=== PATIENT | female | born 1970 | race Caucasian/White ===

== ENCOUNTER 2016-11-14 17:46 | Emergency (ER) | payer MEDICAID ==
[~2016-11-14] VITALS: Ht 157.5 cm; Wt 66.0 kg
[2016-11-14 17:51] VITALS: Ht 157.5 cm; Wt 66.0 kg
[2016-11-14] MEDS ORDERED: IBUPROFEN 600 MG TAB PO ONE (19:30)
[2016-11-14] MEDS ORDERED: SOD CHLORIDE 0.9% 1,000 ML IV STA (19:45)
[2016-11-14] MEDS ORDERED: ACETAMINOPHEN 325 MG TAB PO ONE (20:00)
[2016-11-14 20:06] LABS: BASOPHILS % 0.2 % (0.0-2.0); EOSINOPHILS % 0.2 % (0.0-7.0); HEMATOCRIT 39.4 % (37.0-47.0); HEMOGLOBIN 13.5 g/dl (12.0-16.0); LYMPHOCYTES % 9.1 % (15.0-51.0); MEAN CORPUSCULAR HEMOGLOBIN 31.8 pg (29.0-33.0); MEAN CORPUSCULAR HGB CONC 34.3 g/dl (32.0-37.0); MEAN CORPUSCULAR VOLUME 92.7 fl (82.0-101.0); MEAN PLATELET VOLUME 9.2 fl (7.4-10.4); MONOCYTE # 0.5 10^3/ul (0.3-0.9); MONOCYTES % 4.8 % (0.0-11.0); NEUTROPHIL # 9.1 10^3/ul (1.6-7.5); NEUTROPHILS % 85.3 % (39.0-77.0); PLATELET COUNT 165 10^3/UL (140-415); RED BLOOD COUNT 4.25 10^6/ul (4.20-5.40); RED CELL DISTRIBUTION WIDTH 11.9 % (11.5-14.5); WHITE BLOOD COUNT 10.7 10^3/ul (4.8-10.8)
[2016-11-14 20:29] LABS: ALBUMIN/GLOBULIN RATIO 1.42; BILIRUBIN,INDIRECT 0.4 mg/dl (0-1.1); BILIRUBIN,TOTAL 0.4 mg/dl (0.2-1.3); CALCIUM 9.6 mg/dl (8.4-10.2); CREATININE 0.65 mg/dl (0.44-1.00); POTASSIUM 4.1 mmol/L (3.5-5.1); TOTAL PROTEIN 8.5 g/dl (6.1-8.1)
[2016-11-14 20:35] LABS: ADD UMIC YES; UR ASCORBIC ACID 40 mg/dL (NEGATIVE); UR BACTERIA FEW /HPF (NONE SEEN); UR BILIRUBIN (Dip) NEGATIVE (NEGATIVE); UR BLOOD (Dip) 1+ mg/dL (NEGATIVE); UR BUDDING YEAST MANY /HPF (NONE SEEN); UR CLARITY TURBID (CLEAR); UR COLOR AMBER (YELLOW); UR GLUCOSE (Dip) NEGATIVE (NEGATIVE); UR KETONES (Dip) 2+ mg/dL (NEGATIVE); UR LEUKOCYTE ESTERASE (Dip) 3+ Leu/ul (NEGATIVE); UR NITRITE (Dip) POSITIVE (NEGATIVE); UR RBC 81 /HPF (0-5); UR SPECIFIC GRAVITY (Dip) 1.019 (1.003-1.030); UR SQUAMOUS EPITHELIAL CELL FEW /HPF (FEW); UR TOTAL PROTEIN (Dip) 3+ mg/dl (NEGATIVE); UR UROBILINOGEN (Dip) NEGATIVE (NEGATIVE)
[2016-11-14] MEDS ORDERED: CEPH-443 PO (20:39)
[2016-11-14] MEDS ORDERED: IBUP-1542 PO (20:39)
--- NOTE | 2016-11-14 20:48 | ERD ---
ER Documentation Chief Complaint Date/Time DATE: 11/14/16 TIME: 20:46 Chief Complaint complains of painful urination x 3 days HPI This 46-year-old female presents with dysuria for last 3 days. She has mild suprapubic pain but no upper abdominal pain. She has noted fever triage. She denies vomiting. She has a history of diabetes. ROS All systems reviewed and are negative except as per history of present illness. Medications Home Meds Active Scripts Cephalexin* (Keflex*) 500 Mg Capsule, 500 MG PO QID for 7 Days, CAP Prov:GILLIAN LAWRENCE MD 11/14/16 Ibuprofen* (Motrin*) 600 Mg Tab, 600 MG PO Q6, #15 TAB Prov:GILLIAN LAWRENCE MD 11/14/16 Allergies Allergies: Coded Allergies: No Known Allergy (Unverified , 01/06/15) PMhx/Soc Medical and Surgical Hx: pt denies Surgical Hx History of Surgery: No Anesthesia Reaction: No Hx Neurological Disorder: No Hx Respiratory Disorders: No Hx Cardiac Disorders: No Hx Psychiatric Problems: No Hx Miscellaneous Medical Probl: Yes (DM) Hx Alcohol Use: No Hx Substance Use: No Hx Tobacco Use: No Smoking Status: Never smoker Physical Exam Vitals Vital Signs Date Time Temp Pulse Resp B/P Pulse Ox O2 Delivery O2 Flow Rate FiO2 11/14/16 17:51 100.2 89 20 114/74 100 Physical Exam Const: [], [id number]. Head: Atraumatic Eyes: Normal Conjunctiva ENT: Normal External Ears, Nose and Mouth. Neck: Full range of motion..~ No meningismus. Resp: Clear to auscultation bilaterally Cardio: Regular rate and rhythm, no murmurs Abd: Soft, no suprapubic tenderness. No tenderness at McBurney's point no Oliver sign. Rebound., non distended. Normal bowel sounds Skin: No petechiae or rashes Back: No midline or flank tenderness Ext: No cyanosis, or edema Neur: Awake and alert Psych: Normal Mood and Affect Result Diagram: 11/14/16 1950 11/14/161949 Results 24 hrs Laboratory Tests Test 11/14/16 19:38 11/14/16 19:43 11/14/16 19:50 Urine Color YADIRA Urine Clarity TURBID Urine pH 6.0 Urine Specific [place] 1.019 Urine Ketones 2+mg/dL Urine Nitrite POSITIVEmg/dL Urine Bilirubin NEGATIVEmg/dL Urine Urobilinogen NEGATIVEmg/dL Urine Leukocyte Esterase 3+Nina/ul Urine Microscopic RBC 81/HPF Urine Microscopic WBC > 182/HPF Urine Squamous Epithelial Cells FEW/HPF Urine Bacteria FEW/HPF Urine Yeast (Budding) MANY/HPF Urine Hemoglobin 1+mg/dL Urine Glucose NEGATIVEmg/dL Urine Total Protein 3+mg/dl Bedside Glucose 167mg/dL White Blood Count 10.710^3/ul Red Blood Count 4.2510^6/ul Hemoglobin 13.5g/dl Hematocrit 39.4% Mean Corpuscular Volume 92.7fl Mean Corpuscular Hemoglobin 31.8pg Mean Corpuscular Hemoglobin Concent 34.3g/dl Red Cell Distribution Width 11.9% Platelet Count 95211^3/UL Mean Platelet Volume 9.2fl Neutrophils % 85.3% Lymphocytes % 9.1% Monocytes % 4.8% Eosinophils % 0.2% Basophils % 0.2% Nucleated Red Blood Cells % 0.0/100WBC Neutrophils # 9.110^3/ul Lymphocytes # 1.010^3/ul Monocytes # 0.510^3/ul Eosinophils # 0.010^3/ul Basophils # 0.010^3/ul Nucleated Red Blood Cells # 0.010^3/ul Sodium Level 140mmol/L Potassium Level 4.1mmol/L Chloride Level 103mmol/L Carbon Dioxide Level 25mmol/L Anion Gap 16 Blood Urea Nitrogen 18mg/dl Creatinine 0.65mg/dl Glucose Level 186mg/dl Calcium Level 9.6mg/dl Total Bilirubin 0.4mg/dl Direct Bilirubin 0.00mg/dl Indirect Bilirubin 0.4mg/dl Aspartate Amino Transf (AST/SGOT) 42IU/L Alanine Aminotransferase (ALT/SGPT) 49IU/L Alkaline Phosphatase 123IU/L Total Protein 8.5g/dl Albumin 5.0g/dl Globulin 3.50g/dl Albumin/Globulin Ratio 1.42 Lipase 89U/L Current Medications Medications (Trade) Dose Ordered Sig/Marlo Route PRN Reason Start Time Stop Time Status Last Admin Dose Admin Ibuprofen 600 mg 600 mg ONCE ONCE PO 11/14/16 19:30 11/14/16 19:31 DC 11/14/16 19:43 Sodium Chloride (NS) 1,000 ml @ 1,000 mls/hr Q1H STAT IV 11/14/16 19:45 11/14/16 20:44 DC 11/14/16 20:08 Acetaminophen (Tylenol Tab) 650 mg ONCE ONCE PO 11/14/16 20:00 11/14/16 20:01 DC 11/14/16 20:06 Procedures/MDM Shows findings consistent with UTI. HCG is negative. CBC is normal and CMP normal. Patient is given Rocephin 1 g IV given low-grade fever and history of diabetes. Patient was given 1 L normal saline IV. Patient presents with signs of UTI and low-grade fever. She may have early Cabrera but notes evidence of sepsis or acute abdomen. She will discharged home with prescription of Keflex, ibuprofen, instructions for fluids and return precautions and primary care follow-up. The patient was stable with no new complaints during the ER course. Clinically, there is no current evidence to suggest meningitis, sepsis, acute abdomen, pneumonia, acute coronary syndrome, pulmonary embolism, or any other emergent condition appearing to require further evaluation or hospitalization. The patient should certainly return for any new or worsening symptoms per the aftercare instructions. They should otherwise follow-up with her primary care doctor for reevaluation this week. Departure Diagnosis: Primary Impression: UTI (urinary tract infection) Urinary tract infection type: acute cystitis Hematuria presence: without hematuria Qualified Code: N30.00 - Acute cystitis without hematuria Condition: Stable Patient Instructions: Understanding Urinary Tract Infections (UTIs) Additional Instructions: Urine shows infection. Additional studies show no emergent condition. Drink plenty of fluids at home. Recheck with primary doctor this week return for fevers, vomiting, new or worsening symptoms. GILLIAN LAWRENCE MD Nov 14, 2016 20:48
[2016-11-14] MEDS ORDERED: CEFTRIAXONE 1 GM/50 ML (PMX) 50 ML IVPB ONE (21:00)
[2016-11-14 21:35] VITALS: BP 111/63; PULSE 87; RESP 18; TEMP 98
== END 2016-11-14 21:35 | disposition home or self-care (01) ==
LOC: FTE 17:46
DX: N30.00 Acute cystitis without hematuria (principal); E11.9 Type 2 diabetes mellitus without complications
CPT/HCPCS: 36415; 80053; 81001; 82962; 83690; 85025; 87086; 96361; 96365; J0696; J7030; Z7502; Z7610

== ENCOUNTER 2017-09-21 11:11 | Emergency (ER) | END 2017-09-21 17:20 | disposition home or self-care (01) ==

== ENCOUNTER 2018-05-12 09:06 | Emergency (ER) | payer MEDICAID ==
[~2018-05-12] VITALS: Ht 152.4 cm; Wt 66.5 kg
[~2018-05-12 09:06] MED LIST: CEPH-443 PO; CIPR500T4 PO; IBUP-1542 PO; METR500T PO; ONDA4TAB14 PO
[2018-05-12 09:18] VITALS: Ht 152.4 cm; Wt 66.5 kg
[2018-05-12] MEDS ORDERED: SIMV10TA PO (11:40)
[2018-05-12] MEDS ORDERED: SITA1TAB5 PO (11:41)
[2018-05-12] MEDS ORDERED: LISI10TA2 PO (11:41)
[2018-05-12] MEDS ORDERED: ASPI81TA52 PO (11:41)
--- NOTE | 2018-05-12 12:13 | ERD ---
ER Documentation Chief Complaint Chief Complaint AP HPI The patient is a 47-year-old female, presenting to the ER because of multiple complaints. She recently changed from metformin to Janumet yesterday. She complains of abdominal discomfort about 30 minutes after she took the medication. She felt nauseated but did not vomit. The abdominal pain is transient, mild 2/10, localized at the right lower quadrant. She complains that when she took her blood pressure last night and again this morning, they were low but they got better as time goes on. She denies dizziness, syncope, near syncope, neck pain, chest pain, dyspnea, dysuria, diarrhea, constipation. She does not smoke nor drink, LMP was 2012. She saw her physician today and sent her to the ER for the gallbladder ultrasound Past medical history: Hypertension, dyslipidemia, diabetes mellitus Past surgical history: Appendectomy ROS All systems reviewed and are negative except as per history of present illness. Medications Home Meds Active Scripts Sulfamethoxazole/Trimethoprim* (Bactrim Ds* Tablet) 1 Each Tablet, 1 TAB PO BID, #14 TAB Prov:DAMIAN JUNG MD 05/12/18 Reported Medications Lisinopril* (Lisinopril*) 10 Mg Tablet, 10 MG PO DAILY, #30 TAB 05/12/18 Sitagliptin Phos/Metformin HCl (Janumet 50-1,000 mg Tablet) 1 Each Tablet, 1 EACH PO BID, TAB 05/12/18 Aspirin (Low Dose Aspirin) 81 Mg Tablet.dr, 81 MG PO DAILY, #30 TAB 05/12/18 Simvastatin* (Zocor*) 10 Mg Tablet, 10 MG PO QHS, #30 TAB 05/12/18 Discontinued Scripts Cephalexin* (Keflex*) 500 Mg Capsule, 500 MG PO BID for 7 Days, CAP Prov:KATHY TYSON MD 09/21/17 Ondansetron (Ondansetron Odt) 4 Mg Tab.rapdis, 4 MG PO Q6H PRN for NAUSEA AND/OR VOMITING, #10 TAB Prov:JEANNA URIBE 07/10/17 Metronidazole* (Flagyl*) 500 Mg Tablet, 500 MG PO TID for 7 Days, TAB Prov:JEANNA URIBE 07/10/17 Ciprofloxacin Hcl* (Ciprofloxacin Hcl*) 500 Mg Tablet, 500 MG PO BID for 7 Days, TAB Prov:JEANNA URIBEChelsea 07/10/17 Cephalexin* (Keflex*) 500 Mg Capsule, 500 MG PO QID for 7 Days, CAP Prov:GILLIAN LAWRENCE MD 11/14/16 Ibuprofen* (Motrin*) 600 Mg Tab, 600 MG PO Q6, #15 TAB Prov:GILLIAN LAWRENCE MD 11/14/16 Allergies Allergies: Coded Allergies: No Known Allergy (Unverified , 05/12/18) PMhx/Soc History of Surgery: Yes (APPENECTOMY ) Anesthesia Reaction: No Hx Neurological Disorder: No Hx Respiratory Disorders: No Hx Cardiac Disorders: Yes (Hypertension, hyperlipidemia, ) Hx Psychiatric Problems: No Hx Miscellaneous Medical Probl: Yes (DM) Hx Alcohol Use: No Hx Substance Use: No Hx Tobacco Use: No Physical Exam Vitals Vital Signs Date Temp Pulse Resp B/P (MAP) Pulse Ox O2 O2 Flow FiO2 Time Delivery Rate 05/12/18 98.2 84 19 129/80 100 09:18 (96) Physical Exam Const: No acute distress. Head: Atraumatic. Eyes: Normal Conjunctiva. ENT: Normal External Ears, Nose and Mouth. Neck: Full range of motion. No meningismus. Resp: Clear to auscultation bilaterally. Cardio: Regular rate and rhythm. Abd: Soft, non distended, normal bowel sounds, minimal right sided mid abdominal/RUQ discomfort, no rigidity/rebound/CVA tenderness Skin: No petechiae or rashes. Back: No midline or flank tenderness. Ext: No cyanosis, or edema. Neur: Awake and alert. No focal deficit Psych: Normal Mood and Affect. Result Diagram: 05/12/18 1310 05/12/18 1310 Results 24 hrs Laboratory Tests Test 05/12/18 12:27 05/12/18 13:10 05/12/18 13:14 05/12/18 13:16 Bedside Glucose 141 mg/dL White Blood Count 9.4 10^3/ul Red Blood Count 4.71 10^6/ul Hemoglobin 14.6 g/dl Hematocrit 43.3 % Mean Corpuscular 91.9 fl Volume Mean Corpuscular 31.0 pg Hemoglobin Mean Corpuscular 33.7 g/dl Hemoglobin Concent Red Cell 12.0 % Distribution Width Platelet Count 186 10^3/UL Mean Platelet 8.7 fl Volume Immature 0.500 % Granulocytes % Neutrophils % 70.1 % Lymphocytes % 22.7 % Monocytes % 5.2 % Eosinophils % 1.1 % Basophils % 0.4 % Nucleated Red Blood 0.0 /100WBC Cells % Immature 0.050 10^3/ul Granulocytes # Neutrophils # 6.6 10^3/ul Lymphocytes # 2.1 10^3/ul Monocytes # 0.5 10^3/ul Eosinophils # 0.1 10^3/ul Basophils # 0.0 10^3/ul Nucleated Red Blood 0.0 10^3/ul Cells # Sodium Level 141 mmol/L Potassium Level 4.6 mmol/L Chloride Level 99 mmol/L Carbon Dioxide 29 mmol/L Level Anion Gap 13 Blood Urea Nitrogen 16 mg/dl Creatinine 0.59 mg/dl Est Glomerular > 60 mL/min Filtrat Rate mL/min Glucose Level 165 mg/dl Calcium Level 10.1 mg/dl Total Bilirubin 0.4 mg/dl Direct Bilirubin 0.00 mg/dl Indirect Bilirubin 0.4 mg/dl Aspartate Amino 23 IU/L Transf (AST/SGOT) Alanine 29 IU/L Aminotransferase (A LT/SGPT) Alkaline 98 IU/L Phosphatase Total Protein 7.9 g/dl Albumin 4.8 g/dl Globulin 3.10 g/dl Albumin/Globulin 1.54 Ratio Lipase 194 U/L Bedside Urine pH 7.0 (LAB) Bedside Urine Negative Protein (LAB) Bedside Urine Negative Glucose (UA) Bedside Urine Negative Ketones (LAB) Bedside Urine Blood Negative Bedside Urine Negative Nitrite (LAB) Bedside Urine 2+ Leukocyte Esterase (L POC Beta HCG, NEGATIVE Qualitative Current Medications Medications Dose Sig/Marlo Start Time Status Last (Trade) Ordered Route PRN Stop Time Admin Dose Reason Admin Ketorolac 30 mg ONCE STAT 05/12/18 DC 05/12/18 Tromethamine IV 12:21 12:55 (Toradol) 05/12/18 12:22 Procedures/MDM [place] [id number] Radiology Main Line: [phone] DIAGNOSTIC IMAGING REPORT Patient: VINCENZO ARCHULETA : 1970 Age: 47 Sex: F MR #: [id number] DOS: 05/12/18 1221 Ordering MD: DAMIAN JUNG MD Location: E/R Room/Bed: PROCEDURE: US Abdomen (right upper quadrant). CLINICAL INDICATION: Abdominal pain. TECHNIQUE: Multiple real-time longitudinal and transverse images of the right upper quadrant of the abdomen were acquired utilizing a curved array transducer. Images were reviewed on a high-resolution PACS workstation. COMPARISON: CT abdomen pelvis from 07/10/2017. FINDINGS: The liver is normal in size with a coarsened echotexture suggesting steatosis without focal mass or intrahepatic biliary dilatation. There is normal hepatopedal flow within the main portal vein. The gallbladder is well displayed without filling defects or wall thickening. The common bile duct measures 5.8 mm in maximal dimension. The visualized portions of the pancreas are unremarkable with obscuration of the tail of the pancreas. No free fluid is identified. The right kidney measures 12.5 cm in length. There is normal echogenicity within the right kidney. There is no perinephric fluid collection. No hydronephrosis, mass, or calculus is seen. IMPRESSION: 1. Coarse hepatic echotexture which may reflect diffuse steatosis. RPTAT: [facility] Physician Magdalene Date Time Electronically viewed and signed by Physician Magdalene on 05/12/2018 13:04 JH/ CC: DAMIAN JUNG MD [id number] MEDICAL MAKING DECISION: The patient is a 47-year-old female, presenting with acute cystitis, is stable outpatient follow-up The differential diagnoses considered include but are not limited to adverse effect from Janumet, cholelithiasis, cholecystitis, choledocholithiasis, cholangitis, pancreatitis, hepatitis, gastritis, peptic ulcer disease, gastric ulcer, appendicitis, cystitis, diverticulitis, partial small bowel obstruction. Departure Diagnosis: Primary Impression: UTI (urinary tract infection) Condition: Good Comments She was discharged with Bactrim I discussed the findings with the patient. I advised the patient to follow-up with the primary physician in about 2-3 days, sooner if needed and return if any concern, that she may not need a lot of medication for her hypertensive due to history of hypertension. Disclaimer: Inadvertent spelling and grammatical errors are likely due to EHR/dictation software use and do not reflect on the overall quality of patient care. Also, please note that the electronic time recorded on this note does not necessarily reflect the actual time of the patient encounter. DAMIAN JUNG MD May 12, 2018 12:13
[2018-05-12] MEDS ORDERED: KETOROLAC 30 MG INJ IV STA (12:21)
[2018-05-12] MEDS ORDERED: SULF1TAB31 PO (13:41)
[2018-05-12 13:58] VITALS: BP 122/78; PULSE 72; RESP 16
== END 2018-05-12 14:00 | disposition home or self-care (01) ==
LOC: E/R 09:06
DX: N39.0 Urinary tract infection, site not specified (principal); I10 Essential (primary) hypertension; E11.9 Type 2 diabetes mellitus without complications; Z79.82 Long term (current) use of aspirin; Z79.84 Long term (current) use of oral hypoglycemic drugs
CPT/HCPCS: 76705; 80053; 81003; 81025; 82962; 83690; 85025; 96374; J1885; Z7502